=== PATIENT | male | born 1955 | race African-American/Black ===

== ENCOUNTER → 2016-07-08 | Outpatient (CLI) | payer OTHER ==
[2015-01-01 20:35] VITALS: BP 153/74
[~2016-07-08] MED LIST: GLIM4TAB2 PO; HYDR-2666 PO; LISI1TAB7 PO; LOVA20TA2 PO; POTA10TA5 PO; SITA1TAB11 PO
--- NOTE | 2016-07-08 15:15 | KCIC ---
Thyroid ultrasound dated 07/08/2016. No comparison available. CLINICAL INDICATION: Follow-up thyroid nodule. FINDINGS: Right lobe thyroid gland measures 4.2 x 1.1 x 1.6 cm. Left lobe measures 3.1 x 1.2 x 1.3 cm. Normal color Doppler flow to both lobes. There is a small cystic nodule at the upper pole right thyroid gland measures 3 mm maximum dimension. Additional small cystic focus at the upper pole measures 2 mm. On the left, there is a solid-appearing nodule at the mid pole that measures 6 mm, somewhat hyperechoic. Small cyst at the lower pole measuring 3 mm. IMPRESSION: 1. Indeterminate small solid nodule at the mid pole left thyroid gland measuring 6 millimeters maximum dimension. 2. Small bilateral thyroid cysts. Electronically signed by: Gary Colin MD (07/08/2016 3:11 PM)
== END | disposition home or self-care (01) ==
LOC: KCIC US 14:29
PROVIDERS: ATTEND Family Medicine
DX: E04.1 Nontoxic single thyroid nodule (principal)
CPT/HCPCS: 76536

== ENCOUNTER → 2016-11-08 | Outpatient (CLI) | payer OTHER ==
[2015-01-01 20:35] VITALS: BP 153/74
[~2016-11-08] MED LIST changes: -HYDR-2666 PO; +HYDR-2758 PO
--- NOTE | 2016-11-08 16:45 | KCIC ---
Examination: 3 views of the left foot HISTORY: History of left knee pain for 4 months COMPARISON: None available FINDINGS: The alignment of the tarsal bones, tarsometatarsal joints grossly appears unremarkable. There is mild degenerative changes identified in the tarsal joints. There is mild degenerative change is identified in the first MTP joint. Mild hallux valgus. There is no acute fracture identified. Small inferior calcaneal enthesophyte identified. IMPRESSION: 1. Small inferior plantar calcaneal enthesophyte. If there is clinical suspicion for plantar fasciitis, MRI may be useful Electronically signed by: Octaviano Nixon MD (11/08/2016 4:42 PM) [id number]
== END | disposition home or self-care (01) ==
LOC: KCIC 14:08
PROVIDERS: ATTEND Family Medicine
DX: M79.672 Pain in left foot (principal); M72.2 Plantar fascial fibromatosis; M25.562 Pain in left knee
CPT/HCPCS: 73630

== ENCOUNTER → 2018-04-08 | Outpatient (CLI) | payer OTHER ==
[2015-01-01 20:35] VITALS: BP 153/74
[~2018-04-08] MED LIST changes: +EMPA25TA PO; -HYDR-2758 PO; +HYDR-2761 PO; +LISI1TAB3 PO; +MELO15TA23 PO; +METF100010 PO; +OMEP20CA10 PO; +PIOG30TA41 PO; +POTA10TA12 PO; -POTA10TA5 PO
--- NOTE | 2018-04-08 17:28 | PAIN ---
DATE OF SERVICE: 04/08/2018 INITIAL CONSULTATION FOR PAIN CLINIC CHIEF COMPLAINT: Low back and left lower extremity pain. HISTORY OF PRESENT ILLNESS: The patient is a 62-year-old male who presents with history of pain in the low back, left lower extremity with some radicular qualities to it as well into the left foot. This is begun in 2017. The patient reports no specific injury or action he is aware of, but the pain began to increase on its own and has been fairly significant over the past 1-1/2 years. The patient reports that he has had some chiropractic treatment, which is ongoing, which helps temporarily for about a day or so. Also, some trigger point injections, which had helped with the low back pain. His main pain is in the left foot as well as in the leg and some in low back. The back has actually gotten better with time. The patient reports it is awaking him from sleep about 2-4 times at night with the left leg, does not affect his bowel or bladder control, but does affected his ability to walk. He had a brace he is using on his left foot, which seems to help decrease the pain and make him walk a little easier. The patient rates his disability rate from 0-10, 10 being the worst, is a 10 with family and home responsibilities, recreation, 8 with social activity, occupation, self-care and life support activities, 9 with sexual behavior. The patient reports no loss of motor function in the left lower extremity, but significant fatigability with the left leg and some diabetic polyneuropathy in the toes and the feet bilaterally, somewhat worse on the left side as well. The patient reports pain is sharp, stabbing, shooting, throbbing, changing during the day with activity, cramping, aching, also exacerbated by some weather changes, we had recently with moisture in the air. The patient reports no right-sided symptoms except for the diabetic polyneuropathy burning sensation in the right foot. PAST MEDICAL HISTORY: Significant for type 2 diabetes, hypertension, dizziness. PREVIOUS SURGERY: Include bunionectomy on the right foot. CURRENT MEDICATIONS: Include lovastatin, glimepiride, lisinopril, metformin, Actos, Jardiance, omeprazole and Meloxicam. ALLERGIES: The patient has no known drug allergies. FAMILY HISTORY: Significant for no major medical problems or conditions that he is aware of. SOCIAL HISTORY: The patient does not smoke. He drinks alcohol once every 2 months or so on average, did not use any illegal, illicit or recreational drugs. He is and lives with his spouse, has 3 children, living at home, lives locally in [place], [place]. The patient reports he is currently on long-term disability and this is related to the current pain issue that he is having. REVIEW OF SYSTEMS: The patient's review of systems is positive for those items mentioned in history of present illness. All systems reviewed and otherwise negative. It is complete, full and well documented on the patient's chart. PHYSICAL EXAMINATION: VITAL SIGNS: The patient's blood pressure is 135/88, pulse 62, respirations 18, temperature is 98.9 degrees Fahrenheit, height 5 feet 10 inches, weight is 214 pounds. GENERAL: The patient is awake, alert, oriented, appropriate, very pleasant demeanor. HEENT: Head shows normocephalic, atraumatic. Extraocular muscles are intact and symmetrical. Oral cavity: Mucous membranes moist and pink. Dentition is intact. NECK: Shows anterior throat supple without palpable lymphadenopathy noted. Swallow reflex symmetrical. CHEST: Shows normal on inspection. Breath sounds are clear to auscultation bilaterally. HEART: Shows S1, S2 clear. No murmurs auscultated. ABDOMEN: Soft, nontender, nondistended. No palpable organomegaly is noted. There is no rebound or guarding demonstrated. BACK: The patient's back shows spine grossly in the midline; normal appearing thoracic kyphosis and lumbar lordotic curvature. Lumbar paraspinous muscle shows symmetrical on inspection, with palpation shows some moderate tenderness inferiorly in the lower lumbar distribution of the paraspinous muscles, right equal to left, but without radiation, without trigger points. The patient shows no tenderness over the spinous processes, sacrum or sacroiliac regions. The patient has good rotational motion of lumbar spine, both laterally greater than 10 degrees right and left as well as extension greater than 10 degrees, forward flexion 45 degrees without significant pain reported as well. EXTREMITIES: The patient's lower extremities show deep tendon reflexes at 2+ in the patellar and 1+ tendo-calcaneus tendons. Motor exam is approximately 4 on a scale of 5 with left dorsiflexion, extension; 5/5 on the right; quadriceps and hamstring flexion is 5/5 bilaterally. Peripheral pulses are 1+ posterior tibial. No peripheral edema is noted. The patient again is wearing a splint on his left foot, initially 90-degree splint on the posterior aspect of the thigh and to the plantar surface, which he reports does help the pain in the toes to decrease to some extent, but again the patient has good dorsiflexion, extension with both ankles. Straight leg raise noted to be negative bilaterally for reproduction of radicular symptoms. Gaenslen's and Danny's maneuvers are negative bilaterally as well. The patient is able to stand. It difficult to stand on his left toes as his left second and third toes are very painful with putting weight on his left foot. Right shows no difficulty with all the weight on his right leg and right foot and standing on his toes as well. The patient is walking with a significant shuffling gait, appears to favor the left lower extremity and again the brace and his shoe on his left foot is exacerbating this to some extent. However, he is not using a cane or walker to help ambulate. SKIN: The patient's skin is warm and dry, good turgor. No edema. No sores, rashes or bruising. IMPRESSION: This is a 62-year-old male with, 1. Approximate 1-1/2 year history of low back and left lower extremity pain in a radicular fashion. 2. History of degenerative disk disease by the patient report. No recent x-rays were reported with the patient's medical record. 3. Hypertension. 4. Type 2 diabetes with diabetic neuropathy in the feet. PLAN: Options were discussed with the patient and the patient's spouse who accompanies his to visit today. We discussed conservative medical managements, continued physical therapies, interventional techniques and he elected to pursue a most conservative course at this time. We decided to start on gabapentin 100 mg at bedtime. He reports he has been on this before, but was taken off it that he believes for excessive sedation, so we will start a low dose to see if this may help some of the diabetic neuropathic pain as well as some of the radicular pain. The patient will return to clinic in approximately 2 weeks. If not significantly improved, we did discuss a lumbar epidural steroid injection. He would like to consider this and we will discuss this more on his return visit. The patient was given instruction as well as side effects to be aware of with his medication and will follow up approximately 2 weeks as scheduled. JAIME HELLER MD DR: GARRY/gume JOB#: [id number] / [id number]
== END | disposition home or self-care (01) ==
LOC: PNCL 09:45
PROVIDERS: ATTEND Anesthesiology
DX: M79.662 Pain in left lower leg (principal); M54.5 Low back pain; E11.42 Type 2 diabetes mellitus with diabetic polyneuropathy; I10 Essential (primary) hypertension
CPT/HCPCS: G0463

== ENCOUNTER → 2019-01-06 | Outpatient (CLI) | payer OTHER ==
[2015-01-01 20:35] VITALS: BP 153/74
[~2019-01-06] MED LIST changes: -GLIM4TAB2 PO; +GLIM4TAB4 PO; +LISI1TAB20 PO; +LISI1TAB23 PO; -LISI1TAB3 PO; -LISI1TAB7 PO
--- NOTE | 2019-01-07 00:39 | PAIN ---
DATE OF SERVICE: 01/06/2019 PROGRESS NOTE FOR PAIN CLINIC DIAGNOSES: 1. Lumbar radiculopathy with lumbar degenerative disk disease. 2. Diabetic neuropathy. HISTORY OF PRESENT ILLNESS: The patient is a 63-year-old male who returns for followup status post initial evaluation and trial of gabapentin. The patient reports after about 4 days he began to get a rash with the medication, which was very itchy and uncomfortable. He was no significant decrease in pain that he was having with the medication and stopped the medication at that time. The patient reports still significant pain in the low back, bilateral lower extremities, worse on the left than the right but in the bilateral feet as well with a burning hot pain in the left side especially. The patient reports no new motor or sensory deficits, no new bowel or bladder incontinence or other complaints. The patient reports his pain is a 10 on a scale of 10 at its worst in the past week, 8 on average, 7 at its least and is an 8 today. The patient reports it is aching, shooting, stabbing, at times unbearable, especially in the morning when he is first getting up. The patient reports generally it awakens him from sleep about every 4-5 hours. No new motor or sensory deficits, no new bowel or bladder incontinence or other complaints. PHYSICAL EXAMINATION: VITAL SIGNS: The patient's blood pressure 121/82, pulse is 90, respirations 18, temperature is 99.1 degrees Fahrenheit, height is 5 feet 10 inches, weight is 214 pounds. GENERAL: The patient is awake, alert, oriented, appropriate, very pleasant demeanor. The patient is accompanied by his spouse. HEENT: Shows normocephalic, atraumatic. Extraocular movements are intact and symmetrical. Oral cavity shows mucous membranes moist and pink. Dentition is intact. NECK: Shows anterior throat supple without palpable lymphadenopathy noted. Swallow reflex symmetrical. CHEST: Normal on inspection. Breath sounds are clear to auscultation bilaterally. HEART: Shows S1, S2 clear. No murmurs auscultated. ABDOMEN: Soft, nontender, nondistended. No palpable organomegaly is noted. No rebound or guarding demonstrated. BACK: Shows spine grossly in the midline. Normal appearing thoracic kyphosis and some minor flattening of lumbar lordotic curvature. Lumbar paraspinous muscle shows symmetrical on inspection, on palpation shows some moderate tenderness diffusely bilaterally going diffusely without significant radiation. EXTREMITIES: The patient's lower extremities show deep tendon reflexes at 2+ in the patellar, 1+ tendo-calcaneus tendons. Motor exam is approximately 4 on a scale 5 on the left dorsiflexion, extension, 5/5 on the right. Peripheral pulses are 1+ posterior tibia. No peripheral edema is noted. PLAN: Options were discussed with the patient. The patient's old chart was reviewed as her current medication regimen updated. Current review of systems updated today as well. The patient is adamant against trying any interventional techniques. We discussed lumbar epidural steroid injection with him both on previous visit and today. He would like to try with different medications. We will give him samples of Lyrica 75 mg to take twice daily with instructions, side effects to be aware of discussed as well. The patient will try to see if this may decrease the pain to some extent. He is very adamant about not trying any interventional techniques at this time. The patient will follow up in approximately 2 weeks once the samples have been taken and we will follow up on the progress at that time. JAIME HELLER MD DR: GARRY/gume JOB#: [id number] / [id number]
== END | disposition home or self-care (01) ==
LOC: PNCL 13:41
PROVIDERS: ATTEND Anesthesiology
DX: M51.16 Intervertebral disc disorders with radiculopathy, lumbar region (principal); E11.40 Type 2 diabetes mellitus with diabetic neuropathy, unspecified
CPT/HCPCS: G0463